=== PATIENT | male | born 1990 | race American Indian/Alaskan Native ===

== ENCOUNTER 2024-01-30 16:59 | Emergency (ER) | payer OTHER ==
[~2024-01-30] VITALS: Ht 185.4 cm; Wt 141.4 kg
[2024-01-30] MEDS ORDERED: DIPHTH,PERTUSS(ACELL),TET VAC 0.5 ML SYRINGE IM ONE (17:15)
[2024-01-30 18:48] VITALS: BP 148/76
== END 2024-01-30 18:49 | disposition home or self-care (01) ==
LOC: ED 16:59
DX: S61.216A Laceration without foreign body of right little finger without damage to nail, initial encounter (principal); Z23 Encounter for immunization; Z88.5 Allergy status to narcotic agent; W27.4XXA Contact with kitchen utensil, initial encounter; Y93.G1 Activity, food preparation and clean up
CPT/HCPCS: 12001; 90471; 90715; 99282-25

== ENCOUNTER 2024-01-31 23:25 | Emergency (ER) | payer OTHER ==
[~2024-01-31] VITALS: Ht 185.4 cm; Wt 140.0 kg
--- OUTSIDE RECORDS SUMMARY | 2024-01-31 23:32 | XMS ---
PreManage Notification: PETE JONES [employer] Events No recent Security Events currently on file CRITERIA MET - [facility] - 2 Visits in 30 Days CARE PROVIDERS There are no care providers on record at this time. [facility] has no Care Guidelines for this patient. [facility]12 MO.) [facility] NOTE: Visits indicate total known visits. ED/C VISIT TRACKING (12 MO.) [facility] COMPLAINT: - WOUND CHECK 01/30/2024 17:00 [facility] [place] TYPE: Emergency COMPLAINT: - FINGER LAC DIAGNOSES: - Activity, food preparation and clean up - Allergy status to narcotic agent - Contact with kitchen utensil, initial encounter - Encounter for immunization - Laceration without foreign body of right little finger without damage to nail, initial encounter INPATIENT VISIT TRACKING (12 MO.) No inpatient visits to display in this time frame [email or web address]
[2024-02-01 00:17] VITALS: BP 137/82
== END 2024-02-01 00:19 | disposition home or self-care (01) ==
LOC: ED 23:25
DX: S61.216A Laceration without foreign body of right little finger without damage to nail, initial encounter (principal); W27.4XXA Contact with kitchen utensil, initial encounter; Z88.5 Allergy status to narcotic agent
CPT/HCPCS: 99282